=== PATIENT | female | born 1995 | race Hispanic/Latino ===

== ENCOUNTER 2017-10-07 13:25 | Emergency (ER) | payer OTHER ==
--- NOTE | 2017-10-07 14:40 | Emergency Department Report ---
ED Anxiety HPI - General Chief Complaint: Headache Stated Complaint: ANXIETY/TACHY Time Seen by Provider: 10/07/17 14:11 Source: patient, family, EMS Mode of arrival: Wheelchair Limitations: No Limitations - History of Present Illness Initial Comments: This is a 22-year-old female that was transported by ambulance from [facility]. Patient says she has a history of anxiety and chronic pain from connective tissue disorder, fibromyalgia and tachycardia. She says she lives in [place] and she was in a program at [facility] for anxiety and she got discharged from there and was accepted at [facility] for anxiety. Patient says she has migraine headache that was diagnosed by a neurologist in [facility] 2 years ago. She states that she's taken medication for that she also says that she has chronic pain in her back and hip from connective tissue disorder and fibromyalgia. Patient is reporting anxiety and that she has a anxiety attack because she hasn't had her meds then which was 2 days ago. She said her parents are supposed to bring her medication to her which includes her medication for tachycardia and for anxiety but they're coming from [place] and [place] at [facility] but they did not get to see her because she was on her way to the hospital. She said the headache is located at the front of her head is achy and she is having light sensitivity which is similar to her migraine headache. She denies any visual disturbance or dizziness. Denies any nausea or vomiting. She is also complaining of back and hip pain that is 10 out of 10 along with her headache and aching. Pain is exacerbation by activity and no alleviating factors. She said her heart rate is elevated due to anxiety attack and chronic tachycardia. Patient said at the facility they had ordered and Vistaril for her but they did not have it at the facility and they're waiting for Son[facility] to come in so in the meantime she has not had her medication in 2 days. She said in October that she sees a mental health professional. Complaint: anxiety, heart racing, other (migraine headache) -: This morning Symptoms: palpitations, extremity numbness, dry mouth, muscle cramps, other ( generalized pain and nervousness) Place: other (outpatient facility at [facility]) Previous History of Same: Yes Severity: severe Quality: constant, similar to prior episodes Provoking factors: emotional stress, medication change, other (lack of medication) Improves With: medication Worsens With: other (lack of medication) Associated symptoms: palpitations, diaphoresis, confusion, fever/chills, headaches. denies: shortness of breath, denies other symptoms, cough, anorexia , malaise, nausea/vomiting, rash, seizure, syncope, weakness - Related Data Allergies/Adverse Reactions: Allergies Allergy/AdvReac Type Severity Reaction Status Date / Time No Known Allergies Allergy Unverified 10/07/17 13:35 ED Review of Systems ROS: Stated complaint: ANXIETY/TACHY Other details as noted in HPI Constitutional: chills, fever, malaise Eyes: other (full via). denies: eye pain, eye discharge, vision change ENT: denies: ear pain, throat pain, epistaxis, congestion Respiratory: denies: cough, shortness of breath, SOB with exertion, SOB at rest , stridor, wheezing Cardiovascular: palpitations. denies: chest pain, dyspnea on exertion, edema, syncope, paroxysmal nocturnal dyspnea Gastrointestinal: denies: abdominal pain, nausea, vomiting, diarrhea, constipation Genitourinary: denies: urgency, dysuria, frequency, hematuria, discharge, abnormal menses Musculoskeletal: back pain, arthralgia. denies: joint swelling Skin: denies: rash, lesions, pruritus Neurological: headache, paresthesias, confusion. denies: weakness, numbness, abnormal gait, vertigo Psychiatric: anxiety. denies: depression, auditory hallucinations, visual hallucinations, homicidal thoughts, suicidal thoughts ED Past Medical Hx - Past Medical History Previous Medical History?: Yes Hx Psychiatric Treatment: Yes Additional medical history: connective tissue disease, vaso vagal, fibromyalgia, - Surgical History Past Surgical History?: No - Family History Family history: no significant - Social History Smoking Status: Never Smoker Substance Use Type: None ED Physical Exam - General Limitations: No Limitations General appearance: alert, anxious - Head Head exam: Present: atraumatic, normocephalic, normal inspection, other (normal exam) - Eye Eye exam: Present: normal appearance, PERRL, EOMI. Absent: nystagmus Pupils: Present: normal accommodation - ENT ENT exam: Present: normal exam, normal orophraynx, mucous membranes moist - Neck Neck exam: Present: normal inspection, full ROM, other (no C-spine tenderness). Absent: tenderness, lymphadenopathy - Respiratory Respiratory exam: Present: normal lung sounds bilaterally. Absent: respiratory distress, chest wall tenderness - Cardiovascular Cardiovascular Exam: Present: normal rhythm, tachycardia, normal heart sounds. Absent: systolic murmur, diastolic murmur - GI/Abdominal GI/Abdominal exam: Present: soft, normal bowel sounds. Absent: distended, tenderness, guarding, rebound, rigid, organomegaly, mass - Extremities Exam Extremities exam: Present: normal inspection, full ROM, normal capillary refill , other (no clubbing, cyanosis or edema. Positive pulses all extremities and no neurovascular compromise. No joint deformity, crepitus or effusion. No swelling or ecchymosis area to skin. Bilateral hip joint normal exam. +5 strength in all extremities.). Absent: tenderness, pedal edema, joint swelling , calf tenderness - Back Exam Back exam: Present: normal inspection, full ROM, other (ambulates without any difficulties). Absent: tenderness, CVA tenderness (R), CVA tenderness (L), muscle spasm, paraspinal tenderness, vertebral tenderness, rash noted - Neurological Exam Neurological exam: Present: alert, oriented X3, normal gait, reflexes normal. Absent: motor sensory deficit - Expanded Neurological Exam Expanded Neurological exam: Absent: innattentive, memory loss-remote event, memory loss- recent event, ataxia, receptive aphasia, expressive aphasia, total aphasia, tremor, protecting the airway Patient oriented to: Present: person, time Speech: Present: fluid speech Cranial nerves: EOM's Intact: Normal, Gag Reflex: Normal, Tongue Deviation: Normal, Nystagmus: Normal, Facial Sensation: Normal Cerebellar function: Finger to Nose: Normal, Romberg: Normal Upper motor neuron: Pronator Drift: Normal, Sensory Extinction: Normal Sensory exam: Upper Extremity Light Touch: Normal, Upper Extremity Temperature: Normal, UE 2 Point Discrimination: Normal, Lower Extremity Light Touch: Normal, Lower Extremity Temperature: Normal, LE 2 Point Discrimination: Normal Motor strength exam: RUE: 5, LUE: 5, RLE: 5, LLE: 5 Best Eye Response ([place]): (4) open spontaneously Best Motor Response ([place]): (6) obeys commands Best Verbal Response ([place]): (5) oriented [place] Total: 15 - Psychiatric Psychiatric exam: Present: anxious. Absent: agitated, homicidal ideation, suicidal ideation - Skin Skin exam: Present: warm, dry, intact, normal color. Absent: rash ED Course Vital Signs 10/07/17 10/07/17 13:36 14:58 Temperature 99.4 F Pulse Rate 111 H Respiratory 18 20 Rate Blood Pressure 138/99 O2 Sat by Pulse 99 Oximetry Vital Signs 10/07/17 10/07/17 10/07/17 13:36 14:58 17:07 Temperature 99.4 F Pulse Rate 111 H 94 H Respiratory 18 20 17 Rate Blood Pressure 138/99 O2 Sat by Pulse 99 99 Oximetry - Reevaluation(s) Reevaluation #1: 10/07/17 16:53 Patient given [place] 7.5/325 mg by mouth for headache and arthralgia, back pain which is chronic. She was given Zofran 8 mg ODT, Reglan 10 mg by mouth, Ativan 2 mg by mouth. Patient says she is a lot better her pain is resolved and she is not feeling anxious and worried. Further evaluation patient is non-anxious and or agitated. She is answering questions appropriately and interacted with her family appropriately. She says she feels a lot better. Her heart rate is stabilized. ED Medical Decision Making - Medical Decision Making This is a 22-year-old patient was transported from [facility] facility where she is getting treatment for anxiety. She reports that she has not received her anxiety medication for 2 days and this morning she started having a migraine headache and feels like she is going through withdrawals with generalized pain and crying with chills. She denies any homicide or suicide ideation. Patient is from a [facility] and she is awaiting her family to bring her medication to her which they did but she had already been transported to [facility] for anxiety and pain. On examining patient and she appears very anxious, agitated and crying. He is tachycardic at 111. Patient reports that she has chronic pain from connective tissue disorder and fibromyalgia and she is complaining of hip pain and lower back pain and she also have migraine headache which was diagnosed 2 years ago by a neurologist. Patient appears to be which are in from benzos. She says she takes Ativan when she is back and across the period I gave her Ativan 2 mg by mouth, hydrocodone 7.5/325 mg one tablet by mouth, Phenergan 25 mg by mouth, Reglan 10 mg by mouth and Motrin 800 mg by mouth. Her pain and anxiety has resolved. Patient is stable she is no longer crying or in distress. She says she is feeling a lot better and heart rate is below 100 at present. Her family is at bedside with her and they brought her medication to the [facility]. I discussed the patient that she needs to take it to the mental health professional regarding her anxiety and migraine medication to ensure that she has them at all times to take to prevent any withdrawals. Diagnosis, and treatment plan explained to patient and she voiced understanding. Patient will be discharged from ED with her family member to go back to outpatient rehabilitation. Assessment/plan Anxiety due to stressful situation-resolved with anxiety medication Migraine headache-resolved with anti-inflammatory and hydrocodone. She was given Phenergan and metoclopramide to prevent nausea. Patient is stable and discharged from ED with her family. Anxiety and pain is controlled. Heart rate is controlled. Patient discharged from ED to follow up with mental health provider in 2 days. I discussed with her first symptoms return to return to the emergency room or to go to [facility] otherwise follow up with mental health provider and she voiced understanding. I also instructed her to increase her fluid intake and to take her medication as prescribed by mental health provider as her family member brought her medication to her. - Differential Diagnosis acute psychosis, panic attack, anxiety Critical care attestation.: If time is entered above; I have spent that time in minutes in the direct care of this critically ill patient, excluding procedure time. ED Disposition Clinical Impression: Anxiety attack, Acute exacerbation of chronic low back pain Arthralgia of hip Qualifiers: Laterality: bilateral Qualified Code(s): M25.551 - Pain in right hip; M25.552 - Pain in left hip Migraine headache without aura Qualifiers: Status migrainosus presence: without status migrainosus Intractability: not intractable Qualified Code(s): G43.009 - Migraine without aura, not intractable , without status migrainosus Disposition: -01 TO HOME OR SELFCARE Is pt being admited?: No Does the pt Need Aspirin: No Condition: Stable Instructions: Arthralgia (ED), Back Pain (ED), Anxiety (ED) Additional Instructions: Please take your medication as prescribed by your mental health provider Return to the emergency room or mental health facility if your symptoms return Increase fluid intake to 2-3 L of water or natural juices daily Referrals: PRIMARY CARE, [Primary Care Provider] - 10/09/17 follow-up at [facility] [Other] - 10/09/17 Forms: Accompanied Note
[2017-10-07] MEDS ORDERED: ATIVAN PO ONE (14:41)
[2017-10-07] MEDS ORDERED: MOTRIN PO ONE (14:41)
[2017-10-07] MEDS ORDERED: PHENERGAN PO ONE (14:41)
[2017-10-07] MEDS ORDERED: REGLAN PO ONE (14:41)
[2017-10-07] MEDS ORDERED: NORCO 7.5/325 PO ONE (14:43)
[2017-10-07 17:14] VITALS: BP 132/86
== END 2017-10-07 17:12 | disposition home or self-care (01) ==
LOC: ED 13:25
DX: G43.009 Migraine without aura, not intractable, without status migrainosus (principal); F41.9 Anxiety disorder, unspecified; M54.5 Low back pain; G89.29 Other chronic pain; M25.551 Pain in right hip; M25.552 Pain in left hip
CPT/HCPCS: Q0169

== ENCOUNTER 2017-10-30 22:26 | Emergency (ER) | payer OTHER ==
[2017-10-30] MEDS ORDERED: ASPIRIN PO ONE (22:39)
[2017-10-30] MEDS ORDERED: NACL 0.9% 1000 ML 1,000 ML IV ONE (22:55)
--- NOTE | 2017-10-30 23:00 | Emergency Department Report ---
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 Patient is currently followed at [facility]. her psychiatric facility for anxiety and depression. Patient presented to the ER complaining of right- sided chest pain started today, sharp in nature and does not radiate. She stated that pain associated with some shortness of breath but denied any cough or fever. Patient had a near-syncopal episode in our waiting area. Patient stated that she has been taking some muscle relaxants for muscle spasm. She denied any headache, neck pain, abdominal pain, extremity pain, urinary symptoms , vaginal bleeding or discharge. MD Complaint: chest pain -: This afternoon Onset: during rest Pain Location: right chest Quality: sharp re: nausea. denies: vomting, diaphoresis, dyspnea, sense of impending doom Other Symptoms: syncope - Related Data Allergies Allergy/AdvReac Type Severity Reaction Status Date / Time meperidine [From Demerol] Allergy Unknown Verified 10/30/17 22:39 Heart Score - HEART Score History: Slightly suspicious EKG: Non-specific Age: < 45 Risk factors: No known risk factors Troponin: < normal limit HEART Score: 1 - Critical Actions Critical Actions: 0-3 pts:0.9-1.7%risk of adverse cardiac event.Candidate for discharge ED Review of Systems ROS: Stated complaint: DIZZINESS, SYNCOPAL EPISODE, CHEST PAIN Other details as noted in HPI Comment: All other systems reviewed and negative Constitutional: denies: chills, fever Respiratory: shortness of breath. denies: cough, orthopnea, SOB with exertion, SOB at rest, wheezing Cardiovascular: chest pain. denies: palpitations, dyspnea on exertion, orthopnea Gastrointestinal: denies: abdominal pain, nausea, vomiting, diarrhea, constipation, hematemesis, melena, hematochezia Musculoskeletal: denies: back pain Neurological: denies: headache, weakness, numbness, paresthesias, confusion, abnormal gait, vertigo ED Past Medical Hx - Past Medical History Previous Medical History?: Yes Hx Psychiatric Treatment: Yes Additional medical history: connective tissue disease, vaso vagal, fibromyalgia, - Social History Smoking Status: Never Smoker ED Physical Exam - General Limitations: No Limitations General appearance: alert, in no apparent distress - Head Head exam: Present: atraumatic, normocephalic, normal inspection - Eye Eye exam: Present: normal appearance - ENT ENT exam: Present: normal exam, normal orophraynx, mucous membranes moist - Neck Neck exam: Present: normal inspection, full ROM. Absent: tenderness, meningismus, lymphadenopathy, thyromegaly - Respiratory Respiratory exam: Present: normal lung sounds bilaterally. Absent: respiratory distress, wheezes, rales, rhonchi, stridor, chest wall tenderness, accessory muscle use, decreased breath sounds, prolonged expiratory - Cardiovascular Cardiovascular Exam: Present: regular rate, normal rhythm, normal heart sounds - GI/Abdominal GI/Abdominal exam: Present: soft, normal bowel sounds. Absent: distended, tenderness, guarding, rebound, rigid, organomegaly, mass, bruit, pulsatile mass , hernia - Extremities Exam Extremities exam: Present: normal inspection, full ROM, normal capillary refill - Back Exam Back exam: Present: normal inspection. Absent: full ROM, tenderness, CVA tenderness (R), CVA tenderness (L), muscle spasm, paraspinal tenderness, vertebral tenderness, rash noted - Neurological Exam Neurological exam: Present: alert, oriented X3, CN II-XII intact, normal gait, reflexes normal - Psychiatric Psychiatric exam: Present: depressed. Absent: agitated, anxious, flat affect, manic, homicidal ideation, suicidal ideation - Skin Skin exam: Present: warm, intact, normal color ED Course Vital Signs 10/30/17 10/30/17 10/31/17 22:34 23:13 00:26 Temperature 97.8 F Pulse Rate 94 H Respiratory 16 18 16 Rate Blood Pressure 114/75 O2 Sat by Pulse 96 Oximetry 10/31/17 10/31/17 10/31/17 00:46 01:09 01:40 Temperature Pulse Rate 82 Respiratory 16 16 Rate Blood Pressure 102/59 O2 Sat by Pulse 97 Oximetry 10/31/17 02:09 Temperature Pulse Rate Respiratory 16 Rate Blood Pressure O2 Sat by Pulse Oximetry ED Medical Decision Making - Lab Data Result diagrams: 10/30/17 22:58 10/30/17 22:58 - EKG Data -: EKG Interpreted by [facility] EKG shows normal: sinus rhythm Rate: normal - EKG Data Interpretation: no acute changes Critical care attestation.: If time is entered above; I have spent that time in minutes in the direct care of this critically ill patient, excluding procedure time. ED Disposition Clinical Impression: Chest pain, atypical, UTI (urinary tract infection) Disposition: TO HOME OR SELFCARE Is pt being admited?: No Condition: Stable Instructions: Chest Pain (ED), Urinary Tract Infection in Women (ED) Referrals: PRIMARY CARE, [Primary Care Provider] - 3-5 Days
[2017-10-30 23:12] LABS: Basophils # (Auto) 0.1 K/mm3 (0.0-0.1); Basophils % (Auto) 0.8 % (0.0-1.8); Eosinophils # (Auto) 0.1 K/mm3 (0.0-0.4); Eosinophils % (Auto) 1.7 % (0.0-4.3); Hematocrit 32.5 % (30.3-42.9); Hemoglobin 10.7 gm/dl (10.1-14.3); Lymphocytes # (Auto) 2.5 K/mm3 (1.2-5.4); Lymphocytes % (Auto) 36.4 % (13.4-35.0); Mean Corpuscular HGB Conc 33 % (30-34); Mean Corpuscular Hemoglobin 28 pg (28-32); Mean Corpuscular Volume 85 fl (79-97); Monocytes # (Auto) 0.5 K/mm3 (0.0-0.8); Platelet Count 373 K/mm3 (140-440); Red Blood Count 3.82 M/mm3 (3.65-5.03)
[2017-10-30 23:36] LABS: BUN/Creatinine Ratio 14; Blood Urea Nitrogen 10 mg/dL (7-17); Calcium 8.9 mg/dL (8.4-10.2); Hemolysis Index 0
--- NOTE | 2017-10-31 00:02 | XRay Report ---
FINAL REPORT PROCEDURE: XR CHEST 1V AP TECHNIQUE: Chest radiograph anteroposterior view. CPT 41589 HISTORY: Chest Pain COMPARISON: No prior studies are available for comparison. FINDINGS: Heart: Normal. Mediastinum/Vessels: Normal. Lungs/Pleural space: Normal. Bony thorax: No acute osseous abnormality. Life support devices: None. IMPRESSION: No acute cardiopulmonary abnormality.
[2017-10-31] MEDS ORDERED: TORADOL IV ONE (00:14)
[2017-10-31] MEDS ORDERED: TYLENOL PO ONE (00:27)
[2017-10-31 01:39] LABS: Amphetamine Screen,Urine PRESUMPTIVE NEGATIVE; Bacteria,Urine 1+ /HPF (Negative); Benzodiazepines Screen,Urine PRESUMPTIVE NEGATIVE; Bilirubin,Urine NEG (Negative); Blood,Urine NEG (Negative); Cannabinoid Screen,Urine PRESUMPTIVE NEGATIVE; Cocaine Screen,Urine PRESUMPTIVE NEGATIVE; Color,Urine Yellow (Yellow); Methadone Screen,Urine PRESUMPTIVE NEGATIVE; Mucus,Urine FEW /HPF; Opiate Screen,Urine PRESUMPTIVE NEGATIVE; Protein,Urine <15 mg/dL mg/dL (Negative); Urobilinogen,Urine < 2.0 mg/dL (<2.0)
[2017-10-31] MEDS ORDERED: ROCEPHIN/NS 1 GM/50 ML 1 GM/50 ML BAG IV ONE (02:03)
[2017-10-31 02:38] VITALS: BP 102/59
== END 2017-10-31 03:21 | disposition home or self-care (01) ==
LOC: ED 22:26
DX: N39.0 Urinary tract infection, site not specified (principal); R07.89 Other chest pain; Q79.6 Ehlers-Danlos syndromes; M79.7 Fibromyalgia; F41.9 Anxiety disorder, unspecified; F32.9 Major depressive disorder, single episode, unspecified; Z88.8 Allergy status to other drugs, medicaments and biological substances
CPT/HCPCS: 36415; 71045; 80048; 80307; 81001; 84484; 84703; 85025; 85379; 93005; 93010; 96361; 96365; 99284; J0696; J1885; J7030

== ENCOUNTER 2017-11-03 18:38 | Emergency (ER) | payer OTHER ==
[2017-11-03] MEDS ORDERED: ASPIRIN PO ONE (19:14)
[2017-11-03 19:26] LABS: Basophils % (Auto) 0.6 % (0.0-1.8); Eosinophils % (Auto) 0.6 % (0.0-4.3); Hematocrit 36.4 % (30.3-42.9); Hemoglobin 12.1 gm/dl (10.1-14.3); Lymphocytes # (Auto) 1.6 K/mm3 (1.2-5.4); Mean Corpuscular HGB Conc 33 % (30-34); Mean Corpuscular Hemoglobin 28 pg (28-32); Mean Corpuscular Volume 86 fl (79-97); Monocytes # (Auto) 0.5 K/mm3 (0.0-0.8); Monocytes % (Auto) 6.1 % (0.0-7.3); Platelet Count 393 K/mm3 (140-440); Red Blood Count 4.24 M/mm3 (3.65-5.03); Red Cell Distribution Width 14.8 % (13.2-15.2)
[2017-11-03 19:53] LABS: BUN/Creatinine Ratio 9; Blood Urea Nitrogen 6 mg/dL (7-17); Calcium 9.5 mg/dL (8.4-10.2); Hemolysis Index 6
[2017-11-04] MEDS ORDERED: REGLAN IV ONE (00:18)
[2017-11-04] MEDS ORDERED: MAGNESIUM SULFATE 2GM/50ML 2 GM/50 ML BAG IV ONE (00:18)
[2017-11-04] MEDS ORDERED: NACL 0.9% 1000 ML 1,000 ML IV ONE (00:18)
[2017-11-04] MEDS ORDERED: TYLENOL PO ONE (00:18)
[2017-11-04] MEDS ORDERED: SOLU-Medrol IV ONE (00:18)
[2017-11-04] MEDS ORDERED: BENADRYL IV ONE (00:18)
--- NOTE | 2017-11-04 00:19 | Emergency Department Report ---
ED General Adult HPI - General Chief complaint: Chest Pain Stated complaint: CHEST PAIN/DIZZY Time Seen by Provider: 11/04/17 00:02 Source: patient, RN notes reviewed, old records reviewed Mode of arrival: Ambulatory Limitations: No Limitations - History of Present Illness Initial comments: This is a 22-year-old female who is not known to this provider previously. As per review of old medical records, she has a history of michelle danlos syndrome, fibromyalgia, chronic pain, reports a history of vasovagal syncope. The patient presents to the ER with multiple complaints. Her first complaint is chest pain. It is on the bilateral chest wall. It radiates to the bilateral shoulders. It has been constant for the past 12 hours. It increases with deep inspiration. Her next complaint is dizziness. She feels like she is going to pass out. It has been going on since 1:00 on the preceding day. It worsens when she gets up. It decreases with rest. Her next complaint is headache. It is occipital and radiates to the bitemporal region. It is constant, throbbing, and gets worse with exposure to light and sound. It is not sudden or thunderclap in nature, and it did not reach maximal intensity within an hour. It is not the worse headache of her life. There is no neck pain, there is no neck stiffness. Patient reports 10 episodes of nonbloody, nonbilious diarrhea within the past 24 hours. She was recently prescribed ciprofloxacin for presumed urinary tract infection. She denies vomiting, but feels nauseous. Patient also complains of dysuria. It is intermittent. -: Gradual Location: head, chest Radiation: other Quality: other Consistency: other Improves with: other Worsens with: other Associated Symptoms: chest pain, headaches, loss of appetite, malaise, nausea/ vomiting, syncope, weakness, other. denies: confusion, cough, diaphoresis, fever/chills, rash, seizure, shortness of breath - Related Data Previous Rx's Medication Instructions Recorded Last Taken Type Ciprofloxacin HCl [Ciprofloxacin 500 mg PO Q12H #14 tab 10/31/17 Unknown Rx TAB] Ondansetron [Zofran Odt] 4 mg PO Q8HR PRN #14 tab.rapdis 10/31/17 Unknown Rx traMADol [Ultram] 50 mg PO Q6HR PRN #14 tablet 10/31/17 Unknown Rx Acetaminophen [Tylenol Arthritis] 650 mg PO Q6HR PRN #30 tablet.er 11/04/17 Unknown Rx Ibuprofen [Motrin] 600 mg PO Q8H PRN #30 tablet 11/04/17 Unknown Rx Ondansetron [Zofran Odt] 4 mg PO Q8HR PRN #20 tab.rapdis 11/04/17 Unknown Rx Allergies Allergy/AdvReac Type Severity Reaction Status Date / Time meclizine Allergy Unknown Verified 11/03/17 19:15 meperidine [From Demerol] Allergy Unknown Verified 10/30/17 22:39 ED Review of Systems ROS: Stated complaint: CHEST PAIN/DIZZY Other details as noted in HPI Constitutional: malaise, weakness ENT: denies: epistaxis Respiratory: denies: cough Cardiovascular: chest pain Gastrointestinal: nausea Genitourinary: dysuria Musculoskeletal: arthralgia Skin: denies: lesions Neurological: headache, weakness Psychiatric: anxiety ED Past Medical Hx - Past Medical History Previous Medical History?: Yes Hx Psychiatric Treatment: Yes Additional medical history: connective tissue disease, vaso vagal, fibromyalgia, - Surgical History Past Surgical History?: No - Social History Smoking Status: Never Smoker Substance Use Type: None - Medications Home Medications: Home Medications Medication Instructions Recorded Confirmed Last Taken Type Ciprofloxacin HCl [Ciprofloxacin 500 mg PO Q12H #14 tab 10/31/17 Unknown Rx TAB] Ondansetron [Zofran Odt] 4 mg PO Q8HR PRN #14 tab.rapdis 10/31/17 Unknown Rx traMADol [Ultram] 50 mg PO Q6HR PRN #14 tablet 10/31/17 Unknown Rx Acetaminophen [Tylenol Arthritis] 650 mg PO Q6HR PRN #30 tablet.er 11/04/17 Unknown Rx Ibuprofen [Motrin] 600 mg PO Q8H PRN #30 tablet 11/04/17 Unknown Rx Ondansetron [Zofran Odt] 4 mg PO Q8HR PRN #20 tab.rapdis 11/04/17 Unknown Rx ED Physical Exam - General Limitations: No Limitations General appearance: alert, in no apparent distress - Head Head exam: Present: atraumatic, normocephalic - Eye Eye exam: Present: normal appearance, PERRL, EOMI, other (visual acuity intact to finger counting, color perception, reading at a close distance). Absent: nystagmus - ENT ENT exam: Present: normal exam, normal orophraynx, mucous membranes moist, normal external ear exam - Neck Neck exam: Present: normal inspection, full ROM. Absent: tenderness, meningismus - Respiratory Respiratory exam: Present: normal lung sounds bilaterally. Absent: respiratory distress - Cardiovascular Cardiovascular Exam: Present: normal rhythm, tachycardia, normal heart sounds. Absent: systolic murmur, diastolic murmur, rubs, gallop - GI/Abdominal GI/Abdominal exam: Present: soft, normal bowel sounds. Absent: distended, tenderness, guarding, rebound, rigid, pulsatile mass - Extremities Exam Extremities exam: Present: normal inspection, full ROM, normal capillary refill. Absent: tenderness, pedal edema, joint swelling, calf tenderness - Back Exam Back exam: Present: normal inspection, full ROM. Absent: tenderness, CVA tenderness (R), paraspinal tenderness, vertebral tenderness - Neurological Exam Neurological exam: Present: alert (is no pronator drift. There is no pass pointing. There is normal [id number]), oriented X3, CN II-XII intact, normal gait, other (Extraocular movements intact. Tongue midline. No facial droop. Facial sensation intact to light touch in the V1, V2, V3 distribution bilaterally. 5 and 5 strength in 4 extremities.. Sensation is intact to light touch in 4 extremities.). Absent: motor sensory deficit - Psychiatric Psychiatric exam: Present: anxious - Skin Skin exam: Present: warm, dry, intact, normal color. Absent: rash ED Course Vital Signs 11/03/17 11/04/17 19:10 03:13 Temperature 99.3 F 98.4 F Pulse Rate 106 H 90 Respiratory 16 16 Rate Blood Pressure 133/84 Blood Pressure 119/64 [Left] O2 Sat by Pulse 96 100 Oximetry - Reevaluation(s) Reevaluation #1: 11/04/17 01:36 The patient is sleeping comfortably. Her stool sample as well formed and solid. It is not appear to have the consistency or appearance of diarrhea. She has not vomited in unaware of. Reevaluation #2: 11/04/17 03:23 Tachycardia resolved. No active vomiting. No active diarrhea. CT scan of the brain is negative. CT scan of the chest is negative. Patient noted to be playing on a cellular phone. The patient is in no distress. Patient is medically suitable this point time to follow up with outpatient cardiology. Reevaluation #3: 11/04/17 03:42 Patient's urinalysis is reviewed, and is nonspecific. She can follow-up in outpatient primary care doctor for this. Patient has already taken a course of ciprofloxacin. - EJ/Peripheral Line Neck R Time Out Performed: Yes Indications: nurses unable to establis Skin Cleansed in Sterile Fashion: Yes Size: 20 Dressing Placed: Tegaderm Patient Tolerated Procedure: well ED Medical Decision Making - Lab Data Result diagrams: 11/03/17 19:16 11/03/17 19:16 Vital Signs 11/03/17 19:10 Temperature 99.3 F Pulse Rate 106 H Respiratory 16 Rate Blood Pressure 133/84 O2 Sat by Pulse 96 Oximetry Lab Results 11/03/17 11/03/17 11/03/17 Range/Units 19:16 19:16 21:48 WBC 7.5 (4.5-11.0) K/mm3 RBC 4.24 (3.65-5.03) M/mm3 Hgb 12.1 (10.1-14.3) gm/dl Hct 36.4 (30.3-42.9) % MCV 86 (79-97) fl MCH 28 (28-32) pg MCHC 33 (30-34) % RDW 14.8 (13.2-15.2) % Plt Count 393 (140-440) K/mm3 Lymph % (Auto) 22.0 (13.4-35.0) % [place] % (Auto) 6.1 (0.0-7.3) % Eos % (Auto) 0.6 (0.0-4.3) % Baso % (Auto) 0.6 (0.0-1.8) % Lymph # 1.6 (1.2-5.4) K/mm3 [place] # 0.5 (0.0-0.8) K/mm3 Eos # 0.0 (0.0-0.4) K/mm3 Baso # 0.0 (0.0-0.1) K/mm3 Seg Neutrophils % 70.7 H (40.0-70.0) % Seg Neutrophils # 5.3 (1.8-7.7) K/mm3 Sodium 140 (137-145) mmol/L Potassium 3.7 (3.6-5.0) mmol/L Chloride 103.4 (98-107) mmol/L Carbon Dioxide 19 L (22-30) mmol/L Anion Gap 21 mmol/L BUN 6 L (7-17) mg/dL Creatinine 0.7 (0.7-1.2) mg/dL Estimated GFR > 60 ml/min BUN/Creatinine Ratio 9 % Glucose 141 H (65-100) mg/dL Calcium 9.5 (8.4-10.2) mg/dL Troponin T < 0.010 < 0.010 (0.00-0.029) ng/mL - EKG Data -: EKG Interpreted by Me EKG shows normal: sinus rhythm, axis Rate: normal - EKG Data When compared to previous EKG there are: no significant change 11/04/17 01:21 Normal sinus, 93 bpm, normal axis, motion artifact, intermittent premature ventricular contractions, abnormal EKG, not a STEMI. Appears unchanged from prior EKGs. - Radiology Data Radiology results: pending - Medical Decision Making Differential diagnosis, including the not limited to: Migraine headache, tension headache, cluster headache, acute coronary syndrome, GERD, gastritis, pneumonia, hiatal hernia, aortic disease, pulmonary embolus, urinary tract infection, antibiotic associated diarrhea Assessment and plan: 22-year-old female with numerous complaints. In terms of the patient's chest pain, patient has had multiple evaluations in this department for chest pain. She has had multiple negative troponins, a negative d-dimer, EKG today is unchanged from prior EKG. Low risk by KATERIN score , low risk by heart score, very unlikely to experience major adverse cardiac event. Given low-grade temperature today, pleuritic nature of pain, tachycardia , we will obtain CT scan of the chest to exclude aortic disease and pulmonary embolus. The patient's pain will be treated with nonnarcotic pain medication. Headache clinically sounds benign, has a GCS of 15, with an NIH score of 0. Has a normal neurologic examination. We will obtain noncontrast CT scan of the brain to exclude structural disease, and should the headache with Reglan, fluids , Benadryl. Patient reported diarrhea, I have requested a stool sample. In the 4 hours since I have assumed care of the patient, I have not see her get up to use the restroom. I have also requested a urine sample from the patient. Critical care attestation.: If time is entered above; I have spent that time in minutes in the direct care of this critically ill patient, excluding procedure time. ED Disposition Clinical Impression: Chest pain, Headache, Dizziness Disposition: DC-01 TO HOME OR SELFCARE Is pt being admited?: No Does the pt Need Aspirin: No Condition: Stable Instructions: Chest Pain (ED) Additional Instructions: Cultures were sent today, results will be available in the next 3-5 days. Take the pain medication, nausea medication as needed/directed. 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 Please return to the ER right away with new pain, worsened pain, migration of pain, projectile vomiting, change in mental status, confusion, inability to tolerate liquid feeds. Discontinue the trauma in all prescription that was given to the other day, and discontinue the ciprofloxacin as well. Prescriptions: Acetaminophen [Tylenol Arthritis] 650 mg PO Q6HR PRN #30 tablet.er PRN Reason: Pain Ibuprofen [Motrin] 600 mg PO Q8H PRN #30 tablet PRN Reason: Pain Ondansetron [Zofran Odt] 4 mg PO Q8HR PRN #20 tab.rapdis PRN Reason: Nausea Referrals: PRIMARY CARE, [Primary Care Provider] - 3-5 Days [facility] [Provider Group] - 3-5 Days [facility] [Provider Group] - 3-5 Days
[2017-11-04] MEDS ORDERED: NACL 0.9% 50 ML ONE (01:20)
[2017-11-04] MEDS ORDERED: SOLU-Medrol ONE (02:26)
[2017-11-04] MEDS ORDERED: BENADRYL ONE (02:26)
--- NOTE | 2017-11-04 02:53 | Cat Scan Report ---
FINAL REPORT EXAM: CT ANGIO CHEST HISTORY: Chest pain/pleurisy. TECHNIQUE: CT evaluations performed of the chest following IV contrast administration time for evaluation of the pulmonary arterial system. Coronal and sagittal imaging was also provided for interpretation. PRIORS: None. FINDINGS: CT evaluation of the pulmonary arterial system reveals no focal filling defects to suggest pulmonary embolism. The pulmonary parenchyma is normal without evidence of interstitial or airspace disease. The heart and great vessels,pleura and diaphragms are normal. There is no evidence of mediastinal, hilar, or axillary lymphadenopathy. The visualized upper abdominal viscera and osseous structures are unremarkable. IMPRESSION: No CT evidence of acute pulmonary embolism.
--- NOTE | 2017-11-04 02:56 | Cat Scan Report ---
FINAL REPORT EXAM: CT HEAD/BRAIN WO CON HISTORY: headache TECHNIQUE: CT evaluation was performed of the head without the use of intravenous contrast administration. PRIORS: None. FINDINGS: Normal density, size and configuration of the brain parenchyma and CSF containing spaces. No evidence of acute hemorrhage. no mass effect, edema or shift of midline structures. Visualized paranasal sinuses are clear. No pathologic fluid collection. Calvarium is normal. IMPRESSION: No CT evidence of acute intracranial process. Note: If continued symptoms, consider screening MRI for further evaluation.
[2017-11-04 03:14] VITALS: BP 119/64
[2017-11-04] MEDS ORDERED: REGLAN ONE (03:28)
[2017-11-04 03:36] LABS: Bilirubin,Urine NEG (Negative); Blood,Urine NEG (Negative); Color,Urine Yellow (Yellow); Mucus,Urine 2+ /HPF; Protein,Urine <15 mg/dL mg/dL (Negative); Urobilinogen,Urine < 2.0 mg/dL (<2.0)
== END 2017-11-04 04:09 | disposition home or self-care (01) ==
LOC: ED 18:38
DX: R07.89 Other chest pain (principal); R42 Dizziness and giddiness; R51 Headache; M79.7 Fibromyalgia; F41.9 Anxiety disorder, unspecified; Z88.8 Allergy status to other drugs, medicaments and biological substances
CPT/HCPCS: 36415; 70450; 71275; 80048; 81001; 84443; 84484; 85025; 93005; 93010; 96365; 96375; 99284; J1200; J2765; J2930; J3475; J7030; Q9967